=== PATIENT | male | born 1970 | race Caucasian/White ===

== ENCOUNTER 2016-10-02 07:02 | Emergency (ER) | payer OTHER, BC ==
--- NOTE | ~2016-10-02 | CT71 ---
[facility] A Service of [facility] RADIOLOGY TEXT RESULTS PATIENT: EMMANUEL CAVANAUGH LOCATION: [facility] : 70 UNIT #: [id number] AGE: [address]: Candido Sandoval MD SEX: M ORDER DR: [id number] [facility] [address] [place], [place] [address] [id number] E MR#: [id number] Acc #: [id number] NAME: EMMANUEL CAVANAUGH : 1970 SEX: M STUDY DATE/TIME: 10/02/2016 8:04 UNIT: [facility] ROOM: STUDY DESCRIPTION: CT Head Wo Contrast Attending Physician: Candido Sandoval Ordering Physician: Mushtaq Zheng Aprn Primary Care Physician: Chio Flores M.D. MEDICAL IMAGING REPORT This report is preliminary unless electronic signature is present EXAM Head CT 10/02 INDICATIONS Multiple falls tonight after drinking alcohol. Laceration to the side of the head. History of depression. Axial images were obtained from base of the vertex without contrast. No comparison. This CT exam was performed with one or more of the following radiation dose reduction techniques: automatic exposure control, adjustment of mA and/or kV according to patient size, and iterative reconstruction. FINDINGS Ventricular size and configuration are normal. No acute infarct or hemorrhage is seen. There are no masses. No skull fracture. There are left side scalp dean. IMPRESSION Left side scalp injury. Otherwise, negative head CT. Dictated by... Carlitos Palacios Jr., M.D. THIS IS AN ELECTRONICALLY VERIFIED REPORT Carlitos Palacios Jr., M.D. at 10/02/2016 10:01 AM EVERETT/rigo TD: 10/02/2016 09:28 JOB #: [id number] MEDICAL IMAGING REPORT [facility] A Service of [facility] RADIOLOGY TEXT RESULTS PATIENT: EMMANUEL CAVANAUGH LOCATION: [facility] : 70 UNIT #: [id number] AGE: [address]: Candido Sandoval MD SEX: M ORDER DR: Page 1 of 1 COPY
--- NOTE | ~2016-10-02 | CR58 ---
[facility] A Service of [facility] RADIOLOGY TEXT RESULTS PATIENT: EMMANUEL CAVANAUGH LOCATION: [facility] : 70 UNIT #: [id number] AGE: [address]: Candido Sandoval MD SEX: M ORDER DR: [id number] [facility] [address] [place] [address] [place], [place] [address] [id number] E MR#: [id number] Acc #: [id number] NAME: EMMANUEL CAVANAUGH : 1970 SEX: M STUDY DATE/TIME: 10/02/2016 6:29 UNIT: [facility] ROOM: STUDY DESCRIPTION: CR Cervical Spine 2 or 3 Views Attending Physician: Candido Sandoval Ordering Physician: Mushtaq Zheng Aprn Primary Care Physician: Chio Flores M.D. MEDICAL IMAGING REPORT This report is preliminary unless electronic signature is present EXAM Cervical spine 10/02 INDICATIONS Neck pain that started tonight after fall. Patient intoxicated. FINDINGS 5 views of the cervical spine were obtained. No comparison. There is multilevel degenerative disc disease in the [id number] cervical spine. No acute fracture or subluxation is seen. Multilevel facet arthropathy is present as well. Prevertebral soft tissues are normal. IMPRESSION Multilevel degenerative disc disease and facet arthropathy. No acute fracture. Dictated by... Carlitos Palacios Jr., M.D. THIS IS AN ELECTRONICALLY VERIFIED REPORT Carlitos Palacios Jr., M.D. at 10/02/2016 10:00 AM EVERET[place]/rigo TD: 10/02/2016 08:30 JOB #: [id number] MEDICAL IMAGING REPORT Page 1 of 1 COPY
[~2016-10-02 07:02] MED LIST: CELEXA PO; LEXAPRO PO; PREVACID PO
== END 2016-10-02 09:56 | disposition home or self-care (01) ==
LOC: CED 07:02
DX: S01.01XA Laceration without foreign body of scalp, initial encounter (principal); S13.4XXA Sprain of ligaments of cervical spine, initial encounter; Z79.899 Other long term (current) drug therapy; W18.39XA Other fall on same level, initial encounter; Y93.89 Activity, other specified; Y92.002 Bathroom of unspecified non-institutional (private) residence as the place of occurrence of the external cause
CPT/HCPCS: 12001; 70450; 72040; 90715; 96361; 96374; 99284; J2405